=== PATIENT | male | born 1990 | race Caucasian/White ===

== ENCOUNTER 2023-02-16 01:40 | Emergency (ER) | payer SELFPAY ==
[2023-02-16] MEDS ORDERED: Acetaminophen/HYDROcodone 325-5 MG Tab PO ONE (06:35)
== END 2023-02-16 04:45 | disposition home or self-care (01) ==
LOC: JD.ED 01:40
DX: S00.83XA Contusion of other part of head, initial encounter (principal); S50.12XA Contusion of left forearm, initial encounter; S50.11XA Contusion of right forearm, initial encounter; F17.210 Nicotine dependence, cigarettes, uncomplicated; W22.09XA Striking against other stationary object, initial encounter
CPT/HCPCS: 70450; 70486; 73090; 73130; 73140; 99284; A9270